=== PATIENT | male | born 1975 | race Caucasian/White ===

== ENCOUNTER → 2016-06-12 | Outpatient (CLI) | payer OTHER ==
[~2016-06-12] VITALS: Ht 177.8 cm; Wt 90.7 kg
[~2016-06-12] MED LIST: AMBIEN10 MG PO; COUMADIN5 MG PO; COUMADIN7.5 MG PO; DESYREL12.5 MG PO; DILAUDID4 MG PO; DURAGESIC50 MCG PO; FLEXERIL10 MG PO; LYRICA300 MG PO; METHADONE HCL40 MG PO; NAPROSYN500 MG PO; NEURONTIN400 MG PO; OMEPRAZOLE40 M1 PO; PERCOCET 5/31 TABLET PO; PLAVIX75 MG PO; SENOKOT,SENN1 TABLET PO; STOOL SOFTENER1 EACH PO; TIZANIDINE HCL4 MG PO; ZANTAC150 M1 PO
== END | disposition home or self-care (01) ==
LOC: AMB 11:00
DX: K22.2 Esophageal obstruction (principal); K44.9 Diaphragmatic hernia without obstruction or gangrene; K21.0 Gastro-esophageal reflux disease with esophagitis; K29.70 Gastritis, unspecified, without bleeding; J45.909 Unspecified asthma, uncomplicated; F17.210 Nicotine dependence, cigarettes, uncomplicated; M47.16 Other spondylosis with myelopathy, lumbar region; F10.21 Alcohol dependence, in remission; Z82.49 Family history of ischemic heart disease and other diseases of the circulatory system; Z80.0 Family history of malignant neoplasm of digestive organs; Z82.3 Family history of stroke; Z88.0 Allergy status to penicillin; Z87.891 Personal history of nicotine dependence
CPT/HCPCS: 88305; 88342 TC; J2250

== ENCOUNTER → 2016-09-11 | Outpatient (CLI) | payer OTHER ==
[~2016-09-11] VITALS: Ht 177.8 cm; Wt 94.5 kg
[~2016-09-11] MED LIST changes: +MOBIC15 MG PO; -NEURONTIN400 MG PO; +NEURONTIN600 MG PO
== END | disposition home or self-care (01) ==
LOC: AMB 07:00
PROC: 0DB48ZX Excision of Esophagogastric Junction, Via Natural or Artificial Opening Endoscopic, Diagnostic (ICD-10-PCS; principal; 2016-09-11)
DX: K21.0 Gastro-esophageal reflux disease with esophagitis (principal); K44.9 Diaphragmatic hernia without obstruction or gangrene; K22.10 Ulcer of esophagus without bleeding; J45.909 Unspecified asthma, uncomplicated; F17.200 Nicotine dependence, unspecified, uncomplicated; Z87.19 Personal history of other diseases of the digestive system; Z79.891 Long term (current) use of opiate analgesic; F10.21 Alcohol dependence, in remission; Z88.0 Allergy status to penicillin; Z88.5 Allergy status to narcotic agent; Z88.6 Allergy status to analgesic agent; Z91.018 Allergy to other foods
CPT/HCPCS: 88305; J2250; J3010